=== PATIENT | male | born 1945 | race African-American/Black ===

== ENCOUNTER 2022-01-04 23:11 | Inpatient (IN) | payer MEDICARE, OTHER ==
[~2022-01-04] VITALS: Ht 185.4 cm; Wt 77.1 kg
[2022-01-04] MEDS ORDERED: ACETAMINOPHEN 325MG TABLET PO STA (23:45)
[2022-01-04] MEDS ORDERED: CEFTRIAXONE 1 G PREMIX 50 ML IV ONE (23:45)
[2022-01-04] MEDS ORDERED: SODIUM CHLORIDE 0.9% 1,000 ML IV ONE (23:45)
[2022-01-04] MEDS ORDERED: IPRATROPIUM BROMIDE (0.02%) 0.5MG/2.5ML NEB HHN STA (23:45)
[2022-01-04] MEDS ORDERED: METHYLPREDNISOLONE SOD SUCC 125 MG/2 ML VIAL IV STA (23:45)
[2022-01-04] MEDS ORDERED: AZITHROMYCIN 500MG/250ML 250 ML IV ONE (23:45)
[2022-01-05] MEDS: ALBUTEROL (0.083%) 2.5MG/3ML NEB HHN SCH ×3 (00:15→01:38)
[2022-01-05 00:16] LABS: HEMOGLOBIN. 12.9 g/dL (14.0-18.0); MEAN CORPUSCULAR HEMOGLOBIN 28.3 pg (28.0-32.0); MEAN CORPUSCULAR VOLUME 85.4 fL (80.0-94.0); MEAN PLATELET VOLUME 7.7 fl (7.4-10.4); PLATELET 210 x1000/uL (130-400); RED BLOOD CELL COUNT 4.56 mill/uL (4.7-6.1); RED CELL DISTRIBUTION WIDTH 15.4 % (11.6-14.6)
[2022-01-05 00:25] LABS: CHLORIDE 102 mEq/L (98-107)
[2022-01-05] MEDS ORDERED: ACETAMINOPHEN 325MG TABLET PO SCH (01:30)
[2022-01-05 01:35] LABS: PLATELET ESTIMATE NORMAL
[2022-01-05] MEDS ORDERED: ONDANSETRON HCL 4MG/2ML INJ IV PRN (06:45)
[2022-01-05] MEDS ORDERED: KETOROLAC 15MG/ML VIAL IV PRN (06:45)
[2022-01-05] MEDS ORDERED: DOCUSATE SODIUM 100MG CAPSULE PO PRN (06:45)
[2022-01-05] MEDS ORDERED: GUAIFENESIN 200MG/10ML SUGAR FREE UDC PO PRN (06:45)
[2022-01-05] MEDS ORDERED: ACETAMINOPHEN 325MG TABLET PO PRN (06:45)
[2022-01-05] MEDS ORDERED: NA PHOS,M-B/NA PHOS,DI-BA ENEMA 118ML PR PRN (06:45)
[2022-01-05] MEDS ORDERED: NITROGLYCERIN 0.4MG TABLET SL SL PRN (06:45)
[2022-01-05] MEDS ORDERED: CLONIDINE 0.1MG TABLET PO PRN (06:45)
[2022-01-05] MEDS ORDERED: MAGNESIUM/ALUMINUM HYDROXIDE/SIMETHICONE 30ML UDC PO PRN (06:45)
[2022-01-05] MEDS: ALBUTEROL 6.7GM HFA INHALER ORI SCH ×3 (09:00→21:00)
[2022-01-05 09:58] LABS: FOLIC ACID (FOLATE) SERUM 10.1 ng/mL (>5.38)
[2022-01-05 10:15] VITALS: BP 115/63
[2022-01-05] MEDS: ENOXAPARIN 40MG/0.4ML SYR SUBCUT SCH (11:06)
[2022-01-05] MEDS: ZINC SULFATE 220 MG ( 50 ) CAPSULE PO SCH (11:07)
[2022-01-05] MEDS: DEXAMETHASONE 4MG TABLET PO SCH (11:08)
[2022-01-05] MEDS: FAMOTIDINE 20MG TABLET PO SCH ×2 (11:08→22:38)
[2022-01-05] MEDS: GUAIFENESIN 600MG ER TABLET PO SCH ×2 (11:08→22:38)
[2022-01-05] MEDS: ASPIRIN 325MG EC TABLET PO SCH (11:09)
[2022-01-05] MEDS: ASCORBIC ACID 500 MG TABLET PO SCH ×2 (11:09→22:38)
[2022-01-05 13:39] LABS: BG CARBOXYHEMOGLOBIN 0.8 % (0.5-1.5); BG DEOXYHEMOGLOBIN 4.3 % (0.0-5.0); BG FRACTION INSPIRED OXYGEN 36; BG HCO3 ACT 24.2 mmol/L (22.0-26.0); BG METHEMOGLOBIN 0.4 % (0.0-1.5); BG OXYGEN SATURATION 95.6 % (92.0-98.5); BG OXYHEMOGLOBIN 94.5 % (94.0-97.0); BG PCO2 37.9 mmHg (35.0-45.0); BG PH 7.423 (7.350-7.450); BG PO2 76.4 mmHg (75.0-100.0); BG SAMPLE SITE RIGHT RADIAL; BG TOTAL HEMOGLOBIN 13.3 g/dL (12.0-18.0); BG VENT MODE NASAL CANNULA
[2022-01-05 16:00] VITALS: BP 115/77
[2022-01-05] MEDS ORDERED: NIFE-32 MT (17:56)
[2022-01-05] MEDS ORDERED: FLUT16SP15 BOTHNSTRLS (17:56)
[2022-01-05] MEDS ORDERED: ATOR20TA65 MT (17:56)
[2022-01-05] MEDS ORDERED: DOXA4TAB3 MT (17:56)
[2022-01-05 19:16] LABS: CREATINE KINASE MB FRACTION 2.4 ng/mL (0.5-3.6)
[2022-01-05 20:00] VITALS: BP 109/60
[2022-01-05 20:34] LABS: *AMPHETAMINES SCREEN URINE NEGATIVE (NEGATIVE); *BARBITURATES SCREEN URINE NEGATIVE (NEGATIVE); *BENZODIAZEPINES SCREEN URINE NEGATIVE (NEGATIVE); *COCAINE SCREEN URINE NEGATIVE (NEGATIVE); CANNABINOID URINE SCREEN PRESUMTIVE POSITIVE (NEGATIVE); METHADONE URINE SCREEN NEGATIVE (NEGATIVE); OPIATES URINE SCREEN NEGATIVE (NEGATIVE); PHENCYCLIDINE URINE SCREEN NEGATIVE (NEGATIVE)
[2022-01-05] MEDS ORDERED: ZOLPIDEM TARTRATE 5MG TABLET PO PRN (21:00)
[2022-01-05] MEDS: AZITHROMYCIN 500 MG in DEXT 5% WATER 250 ML IV SCH (22:49)
[2022-01-06] VITALS: BP 118/65
[2022-01-06] MEDS: CEFTRIAXONE 1,000 MG in DEXTROSE 5% WATER 50 ML IV SCH ×2 (00:09→21:51)
[2022-01-06] MEDS: ALBUTEROL 6.7GM HFA INHALER ORI SCH ×5 (03:00→20:39)
[2022-01-06 03:51] LABS: CREATINE KINASE MB FRACTION 2.5 ng/mL (0.5-3.6)
[2022-01-06 04:00] VITALS: BP 126/63
[2022-01-06 07:29] LABS: HEMATOCRIT. 37.4 % (42.0-52.0); HEMOGLOBIN. 12.1 g/dL (14.0-18.0); MEAN CORPUSCULAR HEMOGLOBIN 27.5 pg (28.0-32.0); MEAN CORPUSCULAR VOLUME 85.4 fL (80.0-94.0); MEAN PLATELET VOLUME 8.7 fl (7.4-10.4); PLATELET 245 x1000/uL (130-400); RED BLOOD CELL COUNT 4.38 mill/uL (4.7-6.1)
[2022-01-06 08:00] VITALS: BP 123/72
[2022-01-06 08:13] LABS: CHLORIDE 99 mEq/L (98-107); PHOSPHORUS 2.7 mg/dL (2.5-4.9)
[2022-01-06] MEDS: ASCORBIC ACID 500 MG TABLET PO SCH ×2 (09:07→20:27)
[2022-01-06] MEDS: ENOXAPARIN 40MG/0.4ML SYR SUBCUT SCH (09:07)
[2022-01-06] MEDS: FAMOTIDINE 20MG TABLET PO SCH ×2 (09:07→20:27)
[2022-01-06] MEDS: GUAIFENESIN 600MG ER TABLET PO SCH ×2 (09:07→20:27)
[2022-01-06] MEDS: ASPIRIN 325MG EC TABLET PO SCH (09:07)
[2022-01-06] MEDS: ZINC SULFATE 220 MG ( 50 ) CAPSULE PO SCH (09:07)
[2022-01-06] MEDS: DEXAMETHASONE 4MG TABLET PO SCH (09:14)
[2022-01-06] MEDS: ALBUTEROL 6.7GM HFA INHALER ORI PRN (09:15)
[2022-01-06 12:00] VITALS: BP 126/71
[2022-01-06 16:00] VITALS: BP 101/61
[2022-01-06 20:00] VITALS: BP 125/67
[2022-01-06] MEDS: AZITHROMYCIN 500 MG in DEXT 5% WATER 250 ML IV SCH (20:27)
[2022-01-07] VITALS (7 sets, daily range): BP systolic 110–149; BP diastolic 62–78
[2022-01-07] MEDS: ALBUTEROL 6.7GM HFA INHALER ORI SCH ×4 (04:55→20:59)
[2022-01-07 08:46] LABS: PLATELET ESTIMATE NORMAL
[2022-01-07] MEDS: ZINC SULFATE 220 MG ( 50 ) CAPSULE PO SCH (08:52)
[2022-01-07] MEDS: ASPIRIN 325MG EC TABLET PO SCH (08:52)
[2022-01-07] MEDS: DEXAMETHASONE 4MG TABLET PO SCH (08:52)
[2022-01-07] MEDS: FAMOTIDINE 20MG TABLET PO SCH ×2 (08:52→20:58)
[2022-01-07] MEDS: ASCORBIC ACID 500 MG TABLET PO SCH ×2 (08:52→20:58)
[2022-01-07] MEDS: ALBUTEROL 6.7GM HFA INHALER ORI PRN (08:52)
[2022-01-07] MEDS: GUAIFENESIN 600MG ER TABLET PO SCH ×2 (08:52→20:58)
[2022-01-07] MEDS: ENOXAPARIN 40MG/0.4ML SYR SUBCUT SCH (08:53)
[2022-01-07] MEDS: AZITHROMYCIN 500 MG in DEXT 5% WATER 250 ML IV SCH (20:58)
[2022-01-07] MEDS: CEFTRIAXONE 1,000 MG in DEXTROSE 5% WATER 50 ML IV SCH (22:44)
[2022-01-08] VITALS: BP 143/80
[2022-01-08] MEDS: ALBUTEROL 6.7GM HFA INHALER ORI SCH ×4 (03:00→21:00)
[2022-01-08 04:00] VITALS: BP 126/74
[2022-01-08] MEDS: ACETAMINOPHEN 325MG TABLET PO PRN ×2 (06:29→18:22)
[2022-01-08 08:00] VITALS: BP 136/74
[2022-01-08] MEDS: FAMOTIDINE 20MG TABLET PO SCH ×2 (09:21→21:40)
[2022-01-08] MEDS: DEXAMETHASONE 4MG TABLET PO SCH (09:21)
[2022-01-08] MEDS: ZINC SULFATE 220 MG ( 50 ) CAPSULE PO SCH (09:21)
[2022-01-08] MEDS: GUAIFENESIN 600MG ER TABLET PO SCH ×2 (09:21→21:40)
[2022-01-08] MEDS: ASCORBIC ACID 500 MG TABLET PO SCH ×2 (09:21→21:40)
[2022-01-08] MEDS: ASPIRIN 325MG EC TABLET PO SCH (09:21)
[2022-01-08] MEDS: ENOXAPARIN 40MG/0.4ML SYR SUBCUT SCH (09:21)
[2022-01-08 12:00] VITALS: BP 130/71
[2022-01-08 16:00] VITALS: BP 112/62
[2022-01-08 20:00] VITALS: BP 137/73
[2022-01-08] MEDS: ALBUTEROL 6.7GM HFA INHALER ORI PRN ×2 (21:40→21:41)
[2022-01-08] MEDS: AZITHROMYCIN 500 MG in DEXT 5% WATER 250 ML IV SCH (21:40)
[2022-01-08] MEDS: CEFTRIAXONE 1,000 MG in DEXTROSE 5% WATER 50 ML IV SCH (21:40)
[2022-01-09] VITALS: BP 129/74
[2022-01-09 04:00] VITALS: BP 129/74
[2022-01-09] MEDS: ALBUTEROL 6.7GM HFA INHALER ORI SCH ×2 (05:49→08:19)
[2022-01-09 08:00] VITALS: BP 131/56
[2022-01-09] MEDS: DEXAMETHASONE 4MG TABLET PO SCH (08:20)
[2022-01-09] MEDS: FAMOTIDINE 20MG TABLET PO SCH (08:20)
[2022-01-09] MEDS: ASPIRIN 325MG EC TABLET PO SCH (08:20)
[2022-01-09] MEDS: ENOXAPARIN 40MG/0.4ML SYR SUBCUT SCH (08:20)
[2022-01-09] MEDS: GUAIFENESIN 600MG ER TABLET PO SCH (08:20)
[2022-01-09] MEDS: ASCORBIC ACID 500 MG TABLET PO SCH (08:20)
[2022-01-09] MEDS: ZINC SULFATE 220 MG ( 50 ) CAPSULE PO SCH (08:20)
[2022-01-09 11:00] VITALS: BP 131/56
== END 2022-01-09 11:40 | disposition home or self-care (01) | DRG 871 ==
LOC: ER 23:11 → EDBEDREQ 01-05 04:27 → EDBEDREQTM 01-05 04:27 → EDBEDREQSVC 01-05 04:27 → MICUSO 01-05 06:12 → 7EST 01-05 09:41
PROVIDERS: ADMIT Internal Medicine; ATTEND Internal Medicine
PROC: 5A09357 Assistance with Respiratory Ventilation, Less than 24 Consecutive Hours, Continuous Positive Airway Pressure (ICD-10-PCS; principal; 2022-01-08)
DX: A41.89 Other specified sepsis (principal); J12.82 Pneumonia due to coronavirus disease 2019; U07.1 COVID-19; J96.01 Acute respiratory failure with hypoxia; E44.1 Mild protein-calorie malnutrition; J44.0 Chronic obstructive pulmonary disease with (acute) lower respiratory infection; J44.1 Chronic obstructive pulmonary disease with (acute) exacerbation; I50.30 Unspecified diastolic (congestive) heart failure; D63.8 Anemia in other chronic diseases classified elsewhere; E78.00 Pure hypercholesterolemia, unspecified; F17.210 Nicotine dependence, cigarettes, uncomplicated; G47.33 Obstructive sleep apnea (adult) (pediatric); J20.8 Acute bronchitis due to other specified organisms; I11.0 Hypertensive heart disease with heart failure; Z68.22 Body mass index [BMI] 22.0-22.9, adult; Z78.9 Other specified health status; Z79.82 Long term (current) use of aspirin; Z99.81 Dependence on supplemental oxygen; E78.5 Hyperlipidemia, unspecified
CPT/HCPCS: 36415; 36600; 71045; 80053; 80061; 80305; 82375; 82550; 82553; 82607; 82728; 82746; 82805; 83036; 83540; 83550; 83605; 83615; 83735; 83880; 84100; 84145; 84443; 84484; 85025; 85379; 86141; 87426; 87804; 93005; 93970; 94640; 94660; 99285; C9803; J0456; J0696; J1650; J1885; J2930; J7030; J7060; J8540

== ENCOUNTER 2024-04-19 01:59 | Emergency (ER) | payer MEDICARE, OTHER ==
[~2024-04-19] VITALS: Ht 177.8 cm; Wt 64.0 kg
[~2024-04-19 01:59] MED LIST: ATOR20TA65 MT; DOXA4TAB3 MT; FLUT16SP15 BOTHNSTRLS; NIFE-32 MT
[2024-04-19 02:00] VITALS: TEMP 97.7; O2SAT 95
[2024-04-19 07:46] VITALS: BP 155/80; PULSE 77; RESP 14; O2SAT 98
== END 2024-04-19 08:17 | disposition left against medical advice (07) ==
LOC: ER 02:18
DX: R07.9 Chest pain, unspecified (principal); J44.89 Other specified chronic obstructive pulmonary disease; E78.00 Pure hypercholesterolemia, unspecified; I10 Essential (primary) hypertension; Z79.899 Other long term (current) drug therapy; Z86.73 Personal history of transient ischemic attack (TIA), and cerebral infarction without residual deficits
CPT/HCPCS: 99283